=== PATIENT | female | born 1985 | race Caucasian/White ===

== ENCOUNTER 2019-11-29 17:24 | Emergency (ER) | payer OTHER ==
[~2019-11-29] VITALS: Ht 165.1 cm; Wt 111.1 kg
--- NOTE | ~2019-11-29 | PROC ---
[facility] [address] [place] [address] PROCEDURE REPORT Name: JACOB HILL [id number] Admission: 11/29/19 Attend Phys: Discharge: 11/29/19 Date of : 89 Report #: [id number] THIS REPORT FOR: //name// cc: FAM - No family physician/PCP FAM - No family physician/PCP ~ THIS REPORT FOR: //name// For GI report, please see the Provation report in [employer] content. By: 0649Medical Records Staff ALYX /MARIUSZ
[2019-11-29] MEDS ORDERED: PROAIR HFA8.5 GM INH (17:39)
[2019-11-29] MEDS ORDERED: VENTOLIN HFA 1818 GM INH (17:39)
[2019-11-29] MEDS ORDERED: MICROGESTIN FE1 EACH PO (17:40)
[2019-11-29 18:42] LABS: ABSOLUTE EOSINOPHILS 0.3 thou/uL (0.0-0.7); ABSOLUTE LYMPHOCYTES 1.5 thou/uL (0.8-5.3); ABSOLUTE MONOCYTES 0.6 thou/uL (0.0-1.2); ABSOLUTE NEUTROPHILS 7.8 thou/uL (1.6-8.1); BASOPHILS 0.4 %; EOSINOPHILS 3.3 %; HEMATOCRIT 42.7 % (37.0-47.0); MCH 31.2 pg (26.0-34.0); MCHC 35.2 g/dL (28.0-37.0); MCV 88.5 fL (80.0-100.0); MONOCYTES 5.6 %; MPV 8.1 fl. (7.2-11.1); NUCLEATED RBCS 0 /100WBC; PLATELET COUNT* 250 thou/uL (150-400); POLYS 75.7 %; RBC 4.82 mil/uL (4.20-5.00); RDW-CV 12.6 % (10.5-14.5); WBC 10.3 thou/uL (4.0-11.0)
[2019-11-29 18:52] LABS: APTT 26.4 Seconds (25.0-31.3); PROTIME 10.7 Seconds (9.20-11.50)
[2019-11-29 18:57] LABS: CALCIUM 8.6 mg/dL (8.5-10.1); POTASSIUM 3.7 mmol/L (3.5-5.1)
[2019-11-29 19:09] LABS: ALBUMIN 3.8 g/dL (3.4-5.0); TOTAL BILIRUBIN 0.6 mg/dL (<0.1-1.0); TOTAL PROTEIN 7.8 g/dL (6.4-8.2)
[2019-11-29 19:24] VITALS: BP 126/72
--- NOTE | 2019-12-01 17:08 | PATH ---
[address] [address] PATHOLOGY RPT PROCEDURE Name: JACOB HILL Room: [facility] Mildred#: [id number] Admission: 11/29/19 Date of : 89 Discharge: 11/29/19 Report #: [id number] Path Case #: [id number] [facility] Accession Number: [id number] . 01 Material submitted: . esophagus - ESOPHAGEAL BIOPSY . 01 Clinical history: . Food bolus. . 02 Diagnosis: Esophageal biopsy: - Severe chronic and active esophagitis, suggestive of eosinophilic (allergic) esophagitis, negative for malignancy and granulomas. (See comment) . (ARNOL:jaye; 12/01/2019) QL 12/01/2019 1349 Local . 02 Comment: The biopsy reveals benign squamous mucosa which shows prominent inflammation and although eosinophils within the epithelium average less than 10/HPF, they are noted to be prominently increased in the submucosa fibrotic tissues raising the possibility of allergic esophagitis. Some necrotic/ischemic surface epithelium is noted as if often seen with food bolus. The histologic features are also compatible with severe reflux. . (ARNOL:mml; 12/01/2019) . 02 Electronically signed: . Capo Galan MD, Pathologist NPI- [id number] . 01 Gross description: . Received in formalin labeled "Jacob Hill, esophageal BX rule out EOS" is a 1.0 x 0.4 x 0.1 cm aggregate of partida-brown soft tissue fragments. The specimen is submitted entirely in A1. ([facility]; 11/30/2019) [facility] 11/30/2019 1634 Local . 02 Pathologist provided ICD-10: K20.9 . 02 CPT . 136436 Specimen Comment: A courtesy copy of this report has been sent to [phone] Specimen Comment: [id number] Specimen Comment: Report sent to / [place] [address] PATHOLOGY RPT PROCEDURE Name: JACOB HILL Room: [facility]#: [id number] Admission: 11/29/19 Date of : 89 Discharge: 11/29/19 Report #: [id number] Path Case #: [id number] Performed at: 01 [facility] [place] [address] [facility] [address], [place] [id number] MD Dayton Restrepo MD Phone: [phone] Performed at: 02 [facility] [address], [place], [place] [id number] MD Capo Galan MD Phone: [phone]
== END 2019-11-29 19:24 | disposition still patient (30) ==
LOC: M.SUR 17:24 → M.ERS 17:24
PROVIDERS: Physician Assistant
DX: T18.128A Food in esophagus causing other injury, initial encounter (principal); J45.909 Unspecified asthma, uncomplicated; Z91.013 Allergy to seafood; Z88.6 Allergy status to analgesic agent; X58.XXXA Exposure to other specified factors, initial encounter; Y93.89 Activity, other specified; Y92.89 Other specified places as the place of occurrence of the external cause; Y99.8 Other external cause status